=== PATIENT | female | born 1985 | race African-American/Black ===

== ENCOUNTER 2017-02-26 01:00 | Emergency (ER) | payer OTHER | END 2017-02-26 03:11 | disposition home or self-care (01) | LOC: ERS 01:00 | DX: K02.9 Dental caries, unspecified (principal); R21 Rash and other nonspecific skin eruption; J45.909 Unspecified asthma, uncomplicated; F17.210 Nicotine dependence, cigarettes, uncomplicated; F31.9 Bipolar disorder, unspecified | CPT/HCPCS: 99282 ==

== ENCOUNTER 2017-10-09 21:04 | Emergency (ER) | payer OTHER ==
[2017-10-09 21:25] LABS: Hemoglobin 11.5 g/dL (12.0-16.0); Mean Corpuscular HGB CONC 33.3 g/dL (32.0-36.0); Mean Corpuscular Hemoglobin 30.1 pg (27.0-31.0); Mean Corpuscular Volume 90.4 fL (78.0-98.0); Mean Platelet Volume 7.3 fL (7.4-10.4); Platelet Count 264 thou/uL (130-400); RBC Distribution Width 12.9 % (11.5-14.5); Red Blood Cell (RBC) Count 3.83 mill/uL (4.20-5.40); White Blood Cell (WBC) Count 8.3 thou/uL (4.8-10.8)
[2017-10-09] MEDS ORDERED: Adacel (T-DAP) 0.5 ML VIAL ONE (21:32)
[2017-10-09] MEDS ORDERED: CEFAZOLIN 1 GM VIAL ONE (21:34)
[2017-10-09 21:40] LABS: Band 1 % (5-11); Eosinophils 5 % (0-10); Lymphocytes 57 % (21-51); MDiff Complete? YES; Monocytes 8 % (0-10); Neutrophil 28 % (42-75); Reactive Lymphocytes 1 % (0-10)
[2017-10-09 21:43] LABS: ALT (SGPT) 11 U/L (8-55); AST (SGOT) 18 U/L (5-34); Alkaline Phosphatase 66 U/L (40-150); Anion Gap 10 mmol/L (10-20); BUN (Urea Nitrogen) 10 mg/dL (7.0-18.7); Bilirubin, Total 0.4 mg/dL (0.2-1.2); Calc. Creatinine Clearance 0 mL/min (70-130); Calcium 9.1 mg/dL (7.8-10.44); Carbon Dioxide 23 mmol/L (22-29); Chloride 107 mmol/L (98-107); Estimated GFR-MDRD Greater than 90; Globulin 3.1 g/dL (2.4-3.5); Glucose 93 mg/dL (70-105); Potassium 3.8 mmol/L (3.5-5.1); Protein, Total 7.1 g/dL (6.0-8.3); Sodium 136 mmol/L (136-145)
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
--- NOTE | 2017-10-09 22:01 | RAD ---
AP PELVIS: History: Pelvic pain. Fall with injury. FINDINGS: The pelvis appears intact. Bilateral hips appear intact. IMPRESSION: No evidence of acute fracture. POS: [facility]
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
[2017-10-09] MEDS ORDERED: HYDROcodone/Acetaminophen 10/325 mg Tablet ONE (23:51)
== END 2017-10-10 00:08 | disposition home or self-care (01) ==
LOC: ERS 21:04
DX: S71.101A Unspecified open wound, right thigh, initial encounter (principal); S71.102A Unspecified open wound, left thigh, initial encounter; F17.210 Nicotine dependence, cigarettes, uncomplicated; W33.01XA Accidental discharge of shotgun, initial encounter
CPT/HCPCS: 36415; 72170; 80053; 83735; 85025; 86850; 86900; 86901; 90471; 90715; 96365; G0390; J0690

== ENCOUNTER 2020-07-01 19:43 | Emergency (ER) | payer OTHER | END 2020-07-01 20:48 | disposition home or self-care (01) | LOC: ERS 19:43 | DX: L30.9 Dermatitis, unspecified (principal); J45.909 Unspecified asthma, uncomplicated; F17.210 Nicotine dependence, cigarettes, uncomplicated | CPT/HCPCS: 99282 ==

== ENCOUNTER 2020-08-21 18:45 | Emergency (ER) | payer OTHER ==
[2020-08-21] MEDS ORDERED: Clindamycin/D5W 900 mg/50 ml Premix Bag ONE (19:01)
[2020-08-21] MEDS ORDERED: Ketorolac Tromethamine 30 MG/ML VIAL ONE (19:01)
== END 2020-08-21 21:27 | disposition home or self-care (01) ==
LOC: ERS 18:45
DX: K04.7 Periapical abscess without sinus (principal); K12.2 Cellulitis and abscess of mouth; J45.909 Unspecified asthma, uncomplicated; F17.210 Nicotine dependence, cigarettes, uncomplicated
CPT/HCPCS: 70487; 96365; 96375; J1885; J3490

== ENCOUNTER 2021-04-12 18:40 | Emergency (ER) | payer OTHER ==
[2021-04-12] MEDS ORDERED: Ketorolac Tromethamine 30 MG/ML VIAL ONE (19:39)
== END 2021-04-12 19:52 | disposition home or self-care (01) ==
LOC: ERS 18:40
DX: S60.221A Contusion of right hand, initial encounter (principal); F17.210 Nicotine dependence, cigarettes, uncomplicated; V69.9XXA Occupant (driver) (passenger) of heavy transport vehicle injured in unspecified traffic accident, initial encounter
CPT/HCPCS: 96372; J1885

== ENCOUNTER 2021-09-27 13:24 | Emergency (ER) | payer OTHER | END 2021-09-27 13:57 | disposition home or self-care (01) | LOC: ERS 13:24 | DX: B00.89 Other herpesviral infection (principal); F17.210 Nicotine dependence, cigarettes, uncomplicated | CPT/HCPCS: 99282 ==

== ENCOUNTER 2021-12-05 23:31 | Emergency (ER) | payer OTHER | END 2021-12-06 01:26 | disposition left against medical advice (07) | LOC: ERS 23:31 | DX: Z53.21 Procedure and treatment not carried out due to patient leaving prior to being seen by health care provider (principal) ==

== ENCOUNTER 2021-12-06 01:41 | Emergency (ER) | payer OTHER ==
[2021-12-06] MEDS ORDERED: Acetaminophen 500 MG TAB ONE (02:24)
== END 2021-12-06 02:26 ==
LOC: ERS 01:41
DX: Z02.89 Encounter for other administrative examinations (principal); M54.2 Cervicalgia; F17.210 Nicotine dependence, cigarettes, uncomplicated; V89.2XXA Person injured in unspecified motor-vehicle accident, traffic, initial encounter; W22.11XA Striking against or struck by driver side automobile airbag, initial encounter
CPT/HCPCS: 99284

== ENCOUNTER 2022-03-28 18:29 | Emergency (ER) | payer OTHER ==
[2022-03-28 19:41] LABS: #Basophils 0.1 thou/uL (0.0-0.2); #Eosinphils 0.4 thou/uL (0.0-0.7); #Lymphocytes 3.1 thou/uL (1.20-3.40); #Monocytes 0.8 thou/uL (0.11-0.59); #Neutrophils 4.9 thou/uL (1.40-6.50); %Basophils 0.6 % (0.0-1.0); %Eosinophils 4.2 % (0.0-10.0); %Lymphocytes 33.6 % (21.0-51.0); %Monocytes 8.3 % (0.0-10.0); %Neutrophils 53.3 % (42.0-75.0); Hemoglobin 12.2 g/dL (12.0-16.0); Mean Corpuscular HGB CONC 33.4 g/dL (32.0-36.0); Mean Corpuscular Hemoglobin 30.4 pg (27.0-31.0); Mean Corpuscular Volume 90.8 fl (78.0-98.0); Platelet Count 284 10x3/uL (130-400); RBC Distribution Width 13.4 % (11.5-14.5); Red Blood Cell (RBC) Count 4.01 mill/uL (4.20-5.40); White Blood Cell (WBC) Count 9.2 10x3/uL (4.8-10.8)
[2022-03-28 20:01] LABS: ALT (SGPT) 16 U/L (8-55); AST (SGOT) 19 U/L (5-34); Albumin 4.1 g/dL (3.5-5.0); Alkaline Phosphatase 71 U/L (40-110); Anion Gap 13 mmol/L (10-20); BUN (Urea Nitrogen) 7 mg/dL (7.0-18.7); Bilirubin, Total 0.8 mg/dL (0.2-1.2); Calc. Creatinine Clearance 0 mL/min (70-130); Calcium 9.2 mg/dL (7.8-10.44); Carbon Dioxide 23 mmol/L (22-29); Chloride 103 mmol/L (98-107); Estimated GFR 106; Globulin 3.5 g/dL (2.4-3.5); Glucose 79 mg/dL (70-105); Potassium 3.7 mmol/L (3.5-5.1); Protein, Total 7.6 g/dL (6.0-8.3); Sodium 135 mmol/L (136-145)
[2022-03-28] MEDS ORDERED: Dexamethasone 10 MG/ML VIAL ONE (20:02)
== END 2022-03-28 21:05 | disposition home or self-care (01) ==
LOC: ERS 18:29
DX: I88.9 Nonspecific lymphadenitis, unspecified (principal); R21 Rash and other nonspecific skin eruption; F17.210 Nicotine dependence, cigarettes, uncomplicated
CPT/HCPCS: 36415; 80053; 85025; 87081; 87430; 96372; 99283; J1100

== ENCOUNTER 2022-11-09 07:03 | Emergency (ER) | payer OTHER | END 2022-11-09 07:52 | disposition home or self-care (01) | LOC: ERS 07:03 | DX: B00.89 Other herpesviral infection (principal); F17.210 Nicotine dependence, cigarettes, uncomplicated | CPT/HCPCS: 99282 ==

== ENCOUNTER 2022-12-07 23:05 | Emergency (ER) | payer OTHER ==
[2022-12-08] MEDS ORDERED: predniSONE 20 MG TAB ONE (00:05)
== END 2022-12-08 00:24 | disposition home or self-care (01) ==
LOC: ERS 23:05
DX: L01.00 Impetigo, unspecified (principal); F17.210 Nicotine dependence, cigarettes, uncomplicated
CPT/HCPCS: 99282; J7512

== ENCOUNTER 2024-02-18 06:37 | Emergency (ER) | payer OTHER ==
[2024-02-18] MEDS ORDERED: Ondansetron PF 4 MG/2 ML Vial ONE (07:09)
[2024-02-18] MEDS ORDERED: Boostrix 0.5 ML (Tdap) VIAL (>/=7 yrs of age) ONE (07:10)
[2024-02-18] MEDS ORDERED: Sodium Chloride 0.9% 100 ML ONE ×2 (07:10→08:32)
[2024-02-18] MEDS ORDERED: CEFAZOLIN 2 GM VIAL ONE (07:10)
[2024-02-18] MEDS ORDERED: fentaNYL 50 mcg/mL 1 mL Vial ONE (07:10)
[2024-02-18 07:42] LABS: #Basophils 0.05 10x3/uL (0.0-0.2); %Basophils 0.5 % (0.0-1.0); %Eosinophils 5.6 % (0.0-10.0); %Lymphocytes 22.9 % (21.0-51.0); %Monocytes 3.4 % (0.0-10.0); %Neutrophils 66.6 % (42.0-75.0); Hematocrit 34.7 % (36.0-47.0); Hemoglobin 11.5 g/dL (12.0-16.0); Mean Corpuscular HGB CONC 33.1 g/dL (32.0-36.0); Mean Corpuscular Hemoglobin 28.2 pg (27.0-31.0); Mean Platelet Volume 9.5 fL (7.4-10.4); Platelet Count 408 10x3/uL (130-400); RBC Distribution Width 16.1 % (11.5-14.5); Red Blood Cell (RBC) Count 4.08 mill/uL (4.20-5.40)
[2024-02-18 07:52] LABS: BHCG - Serum Negative (NEGATIVE); Pregs Control Background? CLEAR/WHITE (CLR/WHITE); Pregs Control Bar Appear? YES (CONTROL BAR)
[2024-02-18 07:54] LABS: PTT 27.9 sec (22.9-36.1)
[2024-02-18 08:05] LABS: ALT (SGPT) 24 U/L (8-55); AST (SGOT) 22 U/L (5-34); Albumin 3.2 g/dL (3.5-5.0); Alkaline Phosphatase 75 U/L (40-110); Anion Gap 13 mmol/L (10-20); BUN (Urea Nitrogen) 4 mg/dL (7.0-18.7); Bilirubin, Total 0.2 mg/dL (0.2-1.2); CK (CPK) 142 U/L (29-168); Calc. Creatinine Clearance 0 mL/min (70-130); Calcium 8.7 mg/dL (7.8-10.44); Carbon Dioxide 27 mmol/L (22-29); Chloride 106 mmol/L (98-107); Estimated GFR 115; Globulin 3.3 g/dL (2.4-3.5); Glucose 96 mg/dL (70-105); Potassium 3.8 mmol/L (3.5-5.1); Protein, Total 6.5 g/dL (6.0-8.3); Sodium 142 mmol/L (136-145)
[2024-02-18] MEDS ORDERED: Cefepime 2 GM VIAL ONE (08:30)
[2024-02-18] MEDS ORDERED: Ketorolac Tromethamine 30 MG (1 mL) VIAL ONE (09:20)
[2024-02-18] MEDS ORDERED: Vancomycin (BATCH) 1.75 GM in Premix 1 BAG IVPB SCH (09:30)
[2024-02-18 10:21] LABS: Lactic Acid 1.09 mmol/L (0.5-2.2)
[2024-02-18] MEDS ORDERED: Morphine 4 MG/ML VIAL ONE (12:38)
== END 2024-02-18 12:56 | disposition short-term general hospital (02) ==
LOC: ERS 06:37
DX: L30.9 Dermatitis, unspecified (principal); L40.9 Psoriasis, unspecified; J45.909 Unspecified asthma, uncomplicated; F17.210 Nicotine dependence, cigarettes, uncomplicated; Z23 Encounter for immunization
CPT/HCPCS: 80053; 82550; 83605; 84703; 85025; 85610; 85730; 87040; 90715; 96374; 96375; 96376; J0692; J1885; J2272; J2405; J3010; J3370